=== PATIENT | male | born 1980 | race Caucasian/White ===

== ENCOUNTER 2019-01-02 08:58 | Emergency (ER) | payer OTHER ==
[~2019-01-02] VITALS: Ht 182.9 cm; Wt 117.9 kg
[~2019-01-02 08:58] MED LIST: Augmentin 500-1 EACH PO; Bactrim 400-801 EACH PO; Benadryl 50 mg50 MG PO; CEPH500 PO; METPRE4DP PO; PRAX240 ML TP; Prednisone10 MG PO; Zantac150 MG PO
[2019-01-02] MEDS ORDERED: IBUP800 (09:14)
== END 2019-01-02 09:56 | disposition home or self-care (01) ==
LOC: ER 08:58
DX: S62.336A Displaced fracture of neck of fifth metacarpal bone, right hand, initial encounter for closed fracture (principal); W22.8XXA Striking against or struck by other objects, initial encounter
CPT/HCPCS: 29125; 73130; 99283-25

== ENCOUNTER 2019-03-23 21:33 | Inpatient (IN) | payer OTHER ==
[~2019-03-23] VITALS: Ht 180.3 cm; Wt 121.2 kg
[~2019-03-23 21:33] MED LIST changes: +IBUP800
[2019-03-23 22:25] LABS: BASOPHILS ABSOLUTE AUTO 0.02 K/mm3 (0.00-0.23); BASOPHILS PERCENT AUTO 0 % (0-2); EOSINOPHILS PERCENT AUTO 0 % (0-6); Hematocrit 43.9 % (37.0-53.0); IMMATURE GRAN ABSOLUTE AUTO 0.08 K/mm3 (0.00-0.10); IMMATURE GRAN PERCENT AUTO 1 % (0-1); LYMPHOCYTES ABSOLUTE AUTO 0.97 K/mm3 (0.84-5.20); LYMPHOCYTES PERCENT AUTO 6 % (21-46); MONOCYTES ABSOLUTE AUTO 0.71 K/mm3 (0.16-1.47); MONOCYTES PERCENT AUTO 4 % (4-13); Mean Corpuscular HGB 30.1 pg (26.0-34.0); Mean Corpuscular HGB Conc 34.2 g/dL (31.5-36.5); Mean Corpuscular Volume 88 fL (80-100); NEUTROPHILS ABSOLUTE AUTO 14.56 K/mm3 (1.96-9.15); NEUTROPHILS PERCENT AUTO 89 % (41-73); Platelet Count 243 K/mm3 (150-400); RDW Coefficient Variation 12.8 % (11.7-14.2); RDW Standard Deviation 41.1 fL (35.1-46.3); Red Blood Cell Count 4.99 M/mm3 (4.30-5.90); White Blood Cell Count 16.34 K/mm3 (4.00-11.30)
[2019-03-23 22:42] LABS: Alanine Aminotransfer (ALT/SGP 32 U/L (12-78); Albumin, Blood 3.4 g/dL (3.4-5.0); Albumin/Globulin Ratio 0.8 (0.8-1.8); Alk Phos 90 U/L (50-136); Anion Gap 9 mmol/L (6-16); Aspartate Aminotrans (AST/SGOT 14 U/L (12-37); Bilirubin, Total 2.8 mg/dL (0.1-1.0); Blood Urea Nitrogen 8 mg/dL (8-24); Bun/Creatinine Ratio 8.3 (12.0-20.0); CO2, Blood 25 mmol/L (21-32); Calcium, Blood 8.6 mg/dL (8.5-10.1); Chloride, Blood 104 mmol/L (98-108); Creatinine, Blood 0.97 mg/dL (0.60-1.20); Globulin, Blood 4.1 g/dL (2.2-4.0); Glomerular Filtration Rate >60 (60-); Glucose, Blood 123 mg/dL (70-99); Potassium, Blood 3.6 mmol/L (3.5-5.5); Sodium, Blood 138 mmol/L (136-145); Total Protein, Blood 7.5 g/dL (6.4-8.2)
--- NOTE | 2019-03-24 02:00 | NUR ---
RECEIVED HAND OFF FROM ER NURSE USING SBAR. TRANSPORTED TO ROOM VIA STRETCHER. TRANSFERED SELF TO BED WITH STANDBY ASSIST, TOLERATED WELL. AAO X3, KEY, FOLLOWS ALL COMMANDS. ORIENTED TO ROOM, CALL SYSTEM, AND POC, VOICES UNDERSTANDING. RESPIRATIONS EVEN AND UNLABORED ON ROOM AIR. LUNG SOUNDS CLEAR BILAERALLY. ABDOMEN TENDER TO PALPATIONS, HYPOACTIVE BOWEL SOUNDS NOTED IN ALL QUADS. RIGHT FA 18G PIV IS PATENT, FLUSHING WITH EASE WHILE INFUSING NS AT 125ML/HR AND ZOSYN 4.5GM PIGGYBACK AT 100ML/HR. CONTINENT OF BOWEL AND BLADDER, USES URINAL. RATES PAIN AT 5/10, IMPROVED FROM 9/10 IN ER. ADMISSION ASSESSMENT IN PROGRESS. DENIES FURTHER NEEDDS AT THIS TIME. SAFETY MEASURES IN PLACE. WILL CONTINUE TO MONITOR.
--- NOTE | 2019-03-24 06:47 | NUR ---
SHIFT SUMMARY HAS RESTED WELL SINCE ADMIT. PAIN MEDS GIVEN X1 THIS SHIFT. DENIES FURTHER NEEDS OR WANTS AT THIS TIME. SAFETY MEASURES IN PLACE. WILL GIVE HAND OFF TO ONCOMING SHIFT USING SBAR.
[2019-03-24 10:31] LABS: Source, Urine Voided
--- NOTE | 2019-03-24 11:02 | NUR ---
Patient up to Ambulate independently. Gait steady. Surgical site prepped with 2% Chlorhexidine cloth wipe. History, Chart, Medications and Allergies reviewed before start of procedure.Lungs clear T/O to Auscultation. Patient confirms NPO status and agrees with scheduled surgery.
[2019-03-24 11:19] LABS: Appearance, Urine Clear (Clear); Blood, Urine Neg (Neg); Color, Urine Amber (P-Yellow); Glucose Qualitative, Urine Neg (Neg); Ketones, Urine 1+ (Neg); Leukocyte Esterase, Urine 1+ (Neg); Nitrite, Urine Neg (Neg); Protein, Urine 1+ (Neg); Specific Gravity, Urine 1.015 (1.003-1.022); Urobilinogen, Urine 2+ (Normal)
[2019-03-24 11:53] LABS: Bilirubin, Urine 1+ (Neg)
[2019-03-24 11:55] LABS: Bacteria Rare /hpf; Red Blood Cells, Urine 0-2 /hpf (0-2); Squamous Epithelial Cells Rare /hpf (Few)
--- NOTE | 2019-03-24 18:12 | NUR ---
SHIFT SUMMARY S/P LAP APPY TODAY. VSS. PT REPORTS SORENESS, BUT DENIES NEED FOR PAIN MEDICATIONS. OFFERING CLEAR LIQ. IVF INFUSING PER ORDERS. USING URINAL TO VOID. LAP SITES TO ABD ARE CDI AND LLQ BRAD DRAIN WITH SS FLUIDS AND BULB COMPRESSED. USES CALL LIGHT APPROPRIATELY.
[2019-03-25 04:40] LABS: BASOPHILS ABSOLUTE AUTO 0.03 K/mm3 (0.00-0.23); BASOPHILS PERCENT AUTO 0 % (0-2); EOSINOPHILS ABSOLUTE AUTO 0.02 K/mm3 (0.00-0.68); EOSINOPHILS PERCENT AUTO 0 % (0-6); Hematocrit 37.5 % (37.0-53.0); Hemoglobin 12.6 g/dL (13.5-17.5); IMMATURE GRAN ABSOLUTE AUTO 0.06 K/mm3 (0.00-0.10); IMMATURE GRAN PERCENT AUTO 0 % (0-1); LYMPHOCYTES ABSOLUTE AUTO 1.29 K/mm3 (0.84-5.20); LYMPHOCYTES PERCENT AUTO 9 % (21-46); MONOCYTES ABSOLUTE AUTO 0.91 K/mm3 (0.16-1.47); MONOCYTES PERCENT AUTO 6 % (4-13); Mean Corpuscular HGB 29.6 pg (26.0-34.0); Mean Corpuscular HGB Conc 33.6 g/dL (31.5-36.5); Mean Corpuscular Volume 88 fL (80-100); NEUTROPHILS ABSOLUTE AUTO 12.08 K/mm3 (1.96-9.15); NEUTROPHILS PERCENT AUTO 84 % (41-73); Platelet Count 192 K/mm3 (150-400); RDW Coefficient Variation 13.2 % (11.7-14.2); RDW Standard Deviation 42.4 fL (35.1-46.3); Red Blood Cell Count 4.26 M/mm3 (4.30-5.90); White Blood Cell Count 14.39 K/mm3 (4.00-11.30)
--- NOTE | 2019-03-25 06:28 | NUR ---
SHIFT SUMMARY: PT RESTING MOST OF SHIFT. POD #1 FOR LAP APPI. A&O X4. MILD TEMP IN BEGINNING OF SHIFT. GIVEN NORCO FOR FEVER AND PAIN. TEMP IS STABLE AT THIS TIME. TACHY WITH HR RANGING 98-108. BRAD DRAINING SS FLUID. LAP SITES WITH GAUZE CDI. PT VOIDING IN URINAL. FLUIDS INFUSING.
--- NOTE | 2019-03-25 16:35 | NUR ---
SHIFT SUMMARY NO ACUTE CHANGES THIS SHIFT. PT IS UNMOTIVATED TO GET OOB, BUT DID COOPERATE WITH 2 WALKS IN THE HALLWAY. SBA USING THE WALKER. PT RECEIVING 2 NORCO FOR PAIN PRN. SLOWLY KENNY SMALL AMOUNTS OF REG DIET. STARTING TO BURP, BUT NO FLATUS YET. USING URINAL TO VOID. LAP SITES TO ABD ARE CDI AND BRAD WITH SS DRAINAGE. FRIEND AT BEDSIDE FOR SUPPORT. USES CALL LIGHT APPROPRIATELY.
[2019-03-26 04:29] LABS: BASOPHILS ABSOLUTE AUTO 0.02 K/mm3 (0.00-0.23); BASOPHILS PERCENT AUTO 0 % (0-2); EOSINOPHILS ABSOLUTE AUTO 0.05 K/mm3 (0.00-0.68); EOSINOPHILS PERCENT AUTO 0 % (0-6); Hemoglobin 13.7 g/dL (13.5-17.5); IMMATURE GRAN ABSOLUTE AUTO 0.07 K/mm3 (0.00-0.10); IMMATURE GRAN PERCENT AUTO 1 % (0-1); LYMPHOCYTES PERCENT AUTO 6 % (21-46); MONOCYTES ABSOLUTE AUTO 0.99 K/mm3 (0.16-1.47); MONOCYTES PERCENT AUTO 6 % (4-13); Mean Corpuscular HGB 29.1 pg (26.0-34.0); Mean Corpuscular HGB Conc 33.4 g/dL (31.5-36.5); Mean Corpuscular Volume 87 fL (80-100); Mean Platelet Volume 11.4 fL (9.1-12.4); NEUTROPHILS ABSOLUTE AUTO 13.49 K/mm3 (1.96-9.15); NEUTROPHILS PERCENT AUTO 87 % (41-73); Platelet Count 214 K/mm3 (150-400); RDW Coefficient Variation 12.8 % (11.7-14.2); RDW Standard Deviation 40.7 fL (35.1-46.3); White Blood Cell Count 15.52 K/mm3 (4.00-11.30)
--- NOTE | 2019-03-26 04:29 | NUR ---
RN NOTIFIED OF BRAD DRAIN VOLUME
--- NOTE | 2019-03-26 06:54 | NUR ---
SHIFT SUMMARY: PT POD #2 FOR LAP APPI. INCREASE IN BRAD OUTPUT THIS SHIFT WITH A TOTAL OF 490 ML. DRG IS YELLOW-ORANGE IN COLOR. PT COMPLAINING OF AN INCREASE IN PAIN THIS SHIFT. MANAGED WITH 2 NORCO PRN. MINIMAL PO INTAKE. DENIES N/V. PT UNMOTIVATED TO GET OUT OF BED DUE TO PAIN. FLUIDS AND ABX INFUSING. PT WAS ABLE TO SHOWER INDEPENDENTLY.
--- NOTE | 2019-03-26 08:00 | NUR ---
pt resting emptied shanna picking crew supervisor also emptied night time babysitter rn stated it put out lg amt yellow with some cloudiness pt stated pain is 3-4/10 pt drowsy
--- NOTE | 2019-03-26 12:24 | NUR ---
pt resting ref to eat offered pain meds to enc amb pt declined changed dressing earlier around shanna drain dr gong by to see pt discussed inc drainage
--- NOTE | 2019-03-26 18:08 | NUR ---
pt awake req something to drink encouraged pt to eat
--- NOTE | 2019-03-27 07:52 | NUR ---
SUMMARY: POD 2 LAP APPY [address] RUPTURE BY [address] MEIER. VSS, AFEBRILE, ROOM AIR, VOIDING, PASSING GAS. ABD PAIN WELL CONTROLLED WITH 2 TABS NORCO ONCE THIS SHIFT. PT APPEARS UNMOTIVATED AND SOMNULENT AT TIMES BUT REMAINS ROUSABLE TO VOICE. BRAD OUTPUT >400 ML THIS SHIFT. CONTINUE IV ANTIBIOTICS AND ENCOURAGE OOB ACCTIVITY.
--- NOTE | 2019-03-27 16:05 | NUR ---
SHIFT SUMMARY POD#2 LAP APPY. BRAD WITH LARGE [place]ANG OUTPUT. PT A&OX4, SOMNOLENT, UNMOTIVATED TO GET OOB, UNINTERESTED IN EDU FOR SHORT, FREQ AMBULATION TO BRP AND HALLWAY AND UP TO CHAIR. VOIDS WELL USING URINAL. REP PASSING FLATUS AND BM. DENIES PAIN. DENIES N&V; LOW PO INTAKE. PLAN FOR ABX ORDERED PER EMAR. WCTM.
[2019-03-28 04:24] LABS: BASOPHILS ABSOLUTE AUTO 0.02 K/mm3 (0.00-0.23); BASOPHILS PERCENT AUTO 0 % (0-2); EOSINOPHILS ABSOLUTE AUTO 0.21 K/mm3 (0.00-0.68); EOSINOPHILS PERCENT AUTO 3 % (0-6); Hematocrit 37.5 % (37.0-53.0); Hemoglobin 12.8 g/dL (13.5-17.5); IMMATURE GRAN ABSOLUTE AUTO 0.11 K/mm3 (0.00-0.10); IMMATURE GRAN PERCENT AUTO 2 % (0-1); LYMPHOCYTES ABSOLUTE AUTO 1.35 K/mm3 (0.84-5.20); LYMPHOCYTES PERCENT AUTO 21 % (21-46); MONOCYTES ABSOLUTE AUTO 0.72 K/mm3 (0.16-1.47); MONOCYTES PERCENT AUTO 11 % (4-13); Mean Corpuscular HGB 29.2 pg (26.0-34.0); Mean Corpuscular HGB Conc 34.1 g/dL (31.5-36.5); Mean Corpuscular Volume 85 fL (80-100); Mean Platelet Volume 10.6 fL (9.1-12.4); NEUTROPHILS ABSOLUTE AUTO 4.11 K/mm3 (1.96-9.15); NEUTROPHILS PERCENT AUTO 63 % (41-73); Platelet Count 241 K/mm3 (150-400); RDW Coefficient Variation 12.6 % (11.7-14.2); RDW Standard Deviation 39.3 fL (35.1-46.3); Red Blood Cell Count 4.39 M/mm3 (4.30-5.90); White Blood Cell Count 6.52 K/mm3 (4.00-11.30)
[2019-03-28 04:46] LABS: Anion Gap 7 mmol/L (6-16); Blood Urea Nitrogen 8 mg/dL (8-24); Bun/Creatinine Ratio 10.4 (12.0-20.0); CO2, Blood 28 mmol/L (21-32); Calcium, Blood 7.8 mg/dL (8.5-10.1); Chloride, Blood 107 mmol/L (98-108); Creatinine, Blood 0.77 mg/dL (0.60-1.20); Glomerular Filtration Rate >60 (60-); Glucose, Blood 110 mg/dL (70-99); Magnesium, Blood 2.1 mg/dL (1.6-2.4); Phosphorus, Blood 3.3 mg/dL (2.5-4.9); Potassium, Blood 3.2 mmol/L (3.5-5.5); Sodium, Blood 142 mmol/L (136-145)
--- NOTE | 2019-03-28 06:15 | NUR ---
SUMMARY PT HAS CONTINUED NON PARTICIPATING IN RECOVER.AGREES HE WILL AMBULATE TODAY.
--- NOTE | 2019-03-28 17:11 | NUR ---
SUMMARY: NO ACUTE CHANGE TODAY, PT VSS, A/O. PT AGREED TO GET UP TO RECLINER FOR LUNCH, DECLINED OFFERS OF WALKING IN THE [place]. PT UP TO BATHROOM AND HAD LIQUID BM. BRAD DRAIN EMPTIED PRN. MEDICATED FOR PAIN X1, OTHERWISE PT DENIED NEED AND SLEPT OFF AND ON ALL DAY. SURGICAL SITE WNL. CONTINUING TO ENCOURAGE OOB AND MOBILITY, PT RELUCTANT AT TIMES. PT EX-GIRL FRIEND AT BEDSIDE THE MAJORITY OF THE DAY. TOLERATED SMALL AMOUNT OF REG DIET AND HAS DENIED N/V. PLAN IS DC TOMORROW. WILL CTM AND REPORT TO NOC RN.
--- NOTE | 2019-03-28 18:38 | NUR ---
PT AGREED TO TAKE A WALK AFTER DINER IN HALLS, PT WALKED TO NURSES' STATION AND TO LOBBY. PT TOLERATED WELL, DENIES PAIN.
--- NOTE | 2019-03-29 06:40 | NUR ---
MILAD PT SLEEPING AT THIS TIME.TOLERATING PO FLUIDS AND TAKING PO PAIN MEDS. BRAD CONT TO PUT LESS OUT DAILY.
[2019-03-29] MEDS ORDERED: Norco 5-325 Ta1 EACH PO (13:07)
--- NOTE | 2019-03-29 14:18 | NUR ---
DISCHARGE PT DISCHARGED HOME HOME FROM UNIT AT APROX 1405. PT GIVEN WRITTEN AND VERBAL DISCHARGE INSTUCTIONS AND VERBALIZED UNDERSTANDING OF THESE INSTRUCTIONS. WRITTEN RX FOR NORCO GIVEN TO PT, COPY IN CHART. IV REMOVED, PT TOLERATED WELL. ASSISTED TO CAR
== END 2019-03-29 14:05 | disposition home or self-care (01) | DRG 854 ==
LOC: ER 21:33 → SURS 03-24 01:08
PROVIDERS: Physician Assistant; Surgery; ADMIT Surgery
PROC: 0DTJ4ZZ Resection of Appendix, Percutaneous Endoscopic Approach (ICD-10-PCS; principal; 2019-03-24 11:30)
DX: A41.9 Sepsis, unspecified organism (principal); K35.20 Acute appendicitis with generalized peritonitis, without abscess; K21.9 Gastro-esophageal reflux disease without esophagitis; Z87.891 Personal history of nicotine dependence
CPT/HCPCS: 36415; 74177; 80048; 80053; 81001; 83605; 83690; 83735; 84100; 85025; 87040; 87086; 88304; 93005; 93010; 96361; 96361-59; 96365; 96366; 96374-59; 96375-59; 96376; 99285-25; A9270-GY; J0690; J1100; J1170; J1650; J1885; J2250; J2405; J2543; J2704; J2710; J3010; J7030; J7120; Q9967

== ENCOUNTER 2021-11-30 20:23 | Emergency (ER) | payer OTHER ==
[~2021-11-30] VITALS: Ht 180.3 cm; Wt 120.2 kg
[~2021-11-30 20:23] MED LIST changes: +Norco 5-325 Ta1 EACH PO
== END 2021-11-30 22:19 | disposition home or self-care (01) ==
LOC: ER 20:23
DX: S62.335A Displaced fracture of neck of fourth metacarpal bone, left hand, initial encounter for closed fracture (principal); W22.8XXA Striking against or struck by other objects, initial encounter
CPT/HCPCS: 29105; 73130; 99283-25; A9270